=== PATIENT | male | born 1980 | race Caucasian/White ===

== ENCOUNTER 2021-04-28 07:53 | Outpatient (REF) | payer BC, SELFPAY ==
[2021-04-28 11:56] LABS: Alanine Aminotransferase 23 U/L (0-40); Albumin Level 4.7 g/dL (3.5-5.0); Alkaline Phosphatase 55 U/L (39-117); Anion Gap 11 (12-20); Aspartate Amino Transferase 20 U/L (5-37); Bilirubin Total 1.4 mg/dL (0.0-1.0); Blood Urea Nitrogen 16 mg/dL (9-16); Calcium 9.6 mg/dL (8.4-10.2); Carbon Dioxide 27 mmol/L (22-29); Chloride 106 mmol/L (96-108); Cholesterol 206 mg/dL; Estimated Glomerular Filt Rate > 60; Glucose Fasting 94 mg/dL (60-99); HDL Cholesterol 52 mg/dL; LDL Cholesterol Calculated 129 mg/dl; Potassium 5.1 mmol/L (3.3-5.1); Sodium 139 mmol/L (135-145); Total Protein 7.2 g/dL (6.5-8.0); Triglycerides 127 mg/dL
[2021-04-28 12:09] LABS: Prostate Specific Antigen Scr 0.42 ng/mL (<0.05-4.0); TSH reflex Free T4 1.04 uIU/mL (0.32-4.0)
== END 2021-04-28 07:54 | disposition home or self-care (01) ==
LOC: HO.HMGCLDS 07:53
PROVIDERS: PCP Family Medicine; Visit Provider Family Medicine
DX: Z00.00 Encounter for general adult medical examination without abnormal findings (principal); Z12.5 Encounter for screening for malignant neoplasm of prostate
CPT/HCPCS: 36415; 80053; 80061; 84153; 84443

== ENCOUNTER 2022-05-29 08:05 | Outpatient (REF) | payer BC, SELFPAY ==
[2022-05-29 11:16] LABS: Appearance Urine Cloudy; Color Urine Yellow; Glucose Urine UA Negative (Negative); Leukocyte Esterase Urine Negative (Negative); Nitrite Urine Negative (Negative); PH 6.5 (5.0-9.0); Specific Gravity - Urine 1.025 (1.005-1.025); Urine Blood Negative (Negative); Urine Ketones Negative (Negative); Urine Protein Negative (Neg-Trace)
[2022-05-29 12:03] LABS: Creatinine Urine 232.18 mg/dL; Microalbum/Creatinine Ratio Ur 8.1 ug/mg cr
[2022-05-29 12:05] LABS: Prostate Specific Antigen Scr 0.39 ng/mL (<0.05-4.0); TSH reflex Free T4 0.93 uIU/mL (0.32-4.0)
[2022-05-29 12:11] LABS: Alanine Aminotransferase 21 U/L (0-40); Albumin Level 4.8 g/dL (3.5-5.0); Alkaline Phosphatase 56 U/L (39-117); Anion Gap 14 (12-20); Aspartate Amino Transferase 21 U/L (5-37); Bilirubin Total 1.1 mg/dL (0.0-1.0); Blood Urea Nitrogen 14 mg/dL (9-16); Calcium 9.4 mg/dL (8.4-10.2); Carbon Dioxide 25 mmol/L (22-29); Chloride 107 mmol/L (96-108); Cholesterol 220 mg/dL; Estimated Glomerular Filt Rate > 60; Glucose Fasting 101 mg/dL (60-99); HDL Cholesterol 54 mg/dL; LDL Cholesterol Calculated 144 mg/dl; Potassium 4.4 mmol/L (3.3-5.1); Sodium 142 mmol/L (135-145); Total Protein 7.3 g/dL (6.5-8.0); Triglycerides 112 mg/dL
== END 2022-05-29 08:06 | disposition home or self-care (01) ==
LOC: HO.HMGCLDS 08:05
PROVIDERS: PCP Family Medicine; Visit Provider Family Medicine
DX: Z00.00 Encounter for general adult medical examination without abnormal findings (principal); Z12.5 Encounter for screening for malignant neoplasm of prostate; I10 Essential (primary) hypertension
CPT/HCPCS: 36415; 80053; 80061; 81003; 82043; 84153; 84443

== ENCOUNTER 2022-09-20 15:00 | Outpatient (RCR) | payer BC, SELFPAY ==
--- NOTE | 2022-09-06 15:39 | MHC.PT.EP ---
[facility] [place] Office [place] Office [place] Office [address] Hector Hyde [address] [phone] F: [phone] F: [phone] F: [phone] F: [phone] Physical Therapy Plan of Care Date of Evaluation: Date of Surgery: N/A Diagnosis: low back pain (RC) Assessment: pt is a 42 y/o male presenting to physical therapy w/ referring diagnosis of low back pain. pt's signs and symptoms consistent w/ poor habitual posturing and muscle imbalance. Impairments include pain, decreased range of motion, decreased strength, impaired functional mobility, impaired postural awareness, and altered ambulation mechanics. pt is a good candidate for skilled PT due to age, potential remediation of impairments, typyical disease/condition progression and prognosis, comorbidities, and motivation. pt would benefit from skilled PT intervention to provide a tailored strengthening and stretching exercise program, functional training, gait training, postural re-training, neuromuscular re-education, modalities as needed for pain, equipment safety demonstration. Frequency and Duration: The patient will be seen 2x/wk for 4 wks Short Term Goals: pt will be I w/ HEP to promote self-management of condition. pt will demo proper sitting posture w/ lumbar roll to promote neutral spine w/ seated ADLs. Mcfp Goals: pt will demo proper lifting mechanics w/ 25# object from floor to chest height to promote neutral spine w/ lifting. pt will report a statistically significant improvement in self-reported outcome measure, Jennifer, to promote return to PLOF. Treatment Plan: Modalities to reduce pain, spasms and effusion. Manual therapy to restore motion and function. Therapeutic exercise to improve strength and flexibility. Neuromuscular re-education for posture and balance. Therapeutic activities to return to functional activities of daily living. Electronically signed by: Mony Lomas PT, DPT Please sign and return to therapist. Thank you for your referral.
--- NOTE | 2022-10-17 12:15 | MHC.PT.DC ---
[facility] [place] Office [place] Office [place] Office [address] Hector Hyde [address] [phone] F: [phone] F: [phone] F: [phone] F: [phone] Physical Therapy Discharge Report Diagnosis: low back pain (RC) Date of Surgery: N/A Date of Evaluation: 09/06/22 Date of Discharge: 10/17/22 Treatments to Date: 4 Cancellations to Date: 3 No Shows to Date: 0 Discharge Status: Recommend MD Follow-up Discharge Summary: The patient was not reporting much of a difference in his back symptoms with physical therapy intervention. He has only attended 3 visits at this time. The patient was compliant at time of attending physical therapy. He called to cancel his last visit approximately one month ago due to shingles. He has not called to reschedule in approximately 4 weeks. He is being discharged from this physical therapy plan of care. Electronically signed by: Mony Lomas PT, DPT Please sign and return to therapist. Thank you for your referral.
== END 2022-10-17 12:15 | disposition home or self-care (01) ==
LOC: HO.PT 15:00
PROVIDERS: PCP Family Medicine; Visit Provider Family Medicine
DX: M54.50 Low back pain, unspecified (principal)
CPT/HCPCS: 97110; 97112; 97161

== ENCOUNTER 2022-11-15 14:04 | Outpatient (REF) | payer BC, SELFPAY ==
--- NOTE | ~2022-11-15 | XR_ITS ---
EXAMINATION: XR ANKLE, LEFT XR FOOT, LEFT CLINICAL INFORMATION: Left ankle and foot pain. COMPARISON: Left ankle and foot radiographs dated 08/05/2013. TECHNIQUE: AP, lateral, and mortise views of the left ankle and foot were obtained. FINDINGS: No acute fracture or dislocation. Normal tarsal alignment. No joint space narrowing or marginal osteophytes. No osseous erosion. No significant joint effusion. No abnormal soft tissue calcification. XR/XR ankle LT 2V IMPRESSION: Unremarkable examination.
--- NOTE | ~2022-11-15 | XR_ITS ---
EXAMINATION: XR ANKLE, LEFT XR FOOT, LEFT CLINICAL INFORMATION: Left ankle and foot pain. COMPARISON: Left ankle and foot radiographs dated 08/05/2013. TECHNIQUE: AP, lateral, and mortise views of the left ankle and foot were obtained. FINDINGS: No acute fracture or dislocation. Normal tarsal alignment. No joint space narrowing or marginal osteophytes. No osseous erosion. No significant joint effusion. No abnormal soft tissue calcification. XR/XR foot LT min 3V IMPRESSION: Unremarkable examination.
== END 2022-11-15 14:05 | disposition home or self-care (01) ==
LOC: HO.HMGCX 14:04
PROVIDERS: PCP Family Medicine; Visit Provider Family Medicine
DX: M25.572 Pain in left ankle and joints of left foot (principal); M25.472 Effusion, left ankle
CPT/HCPCS: 73600; 73630

== ENCOUNTER 2023-05-20 08:53 | Outpatient (AMB) | payer BC, SELFPAY ==
[2023-05-20 08:56] VITALS: BP 116/66; PULSE 74; RESP 13; TEMP 36.6; O2SAT 99; BMI 25.9
--- NOTE | 2023-05-20 08:56 | MHC.PC.OV ---
Vital Signs 05/20/23 08:56 Height 6 ft Weight 191 lb 4 oz BMI 25.9 BP 116/66 Blood Pressure Location Lt brachial Position Sitting Respiration 13 Pulse 74 Pulse Source Pulse Oximeter Temp 97.9 F Temp Source Temporal Artery Scan Pulse Oximetry (%) 99 Oxygen Delivery Method Room Air Intake Visit Reasons: PE Right Of Way Buyer Required: No Accompanied by: Self / Same As Patient Allergies No Known Allergies [No Known Allergies*] Allergy (Verified 05/20/23 09:01) Tobacco use date assessed: 05/20/23 Dental Screening Dental Screen Date: 05/20/23 Did you have a dental visit in the last 12 months?: Yes Did you have a dental problem in the last 6 months where you did not have access to dental care?: No Was dental information given to patient?: Patient has dentist HPI PE HPI Details 42 y/o male presents for a CPE with f/u labs and health maintenance. No recent labs to review. 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 1. Little interest or pleasure in doing things: not at all 2. Feeling down, depressed, or hopeless: not at all 3. Trouble falling or staying asleep, or sleeping too much: not at all 4. Feeling tired or having little energy: not at all 5. Poor appetite or overeating: not at all 6. Feeling bad about yourself - or that you are a failure or have let yourself or your family down: not at all 7. Trouble concentrating on things, such as reading the newspaper or watching television: not at all 8. Moving or speaking so slowly that other people could have noticed. Or the opposite - being so fidgety or restless that you have been moving around a lot more than usual: not at all 9. Thoughts that you would be better off or of hurting yourself in some way: not at all Total score: 0 Depression Screening Interpretation: Negative Depression Screening Done: Yes Source: Developed by Drs. Mc Moore, Kelsey Bravo, Walter Chicas and colleagues, with an educational sherri from [employer]. Thrive Questionnaire Date Thrive assessed: 05/20/23 I am a: Patient What is your living situation today?: I have a steady place to live Within the past 12 months, did the food you bought not last and you didn't have the money to get more?: Never true Within the past 12 months, did you worry whether your food would run out before you got money to buy more?: Never true Do you have trouble paying for medicines?: No Do you have trouble getting transportation to medical appointments?: No Do you have trouble paying your heating and electricity bill?: No Do you have trouble taking care of your child, family member or friend?: No Do you have trouble with day-to-day activities such as bathing, preparing meals, shopping, managing finances, etc.?: No Are you currently unemployed and looking for a job?: No Are you interested in more education?: No Please select the resources that you would like help with: None Currently or been in a relationship where the following occur: no concerns reported PAULA-7 AMB Questionnaire PAULA-7 Date PAULA - 7 assessed: 05/20/23 Feeling nervous, anxious, or on edge: 0 = Not at all Not being able to stop or control worryin = Not at all Worrying too much about different things: 0 = Not at all Trouble relaxin = Not at all Being so restless that it is hard to sit still: 0 = Not at all Becoming easily annoyed or irritable: 0 = Not at all Feeling afraid as if something awful might happen: 0 = Not at all Total PAULA-7 score (0-4 normal; 5-9 mild; 10-14 moderate; 15-21 severe): 0 Source: Developed by Kelsey Perez Kurt Kroenke and colleagues, with an educational sherri from [employer]. Review of Systems Const Denies chills, Denies fatigue, Denies fever(s), Denies headache(s) and Denies weakness Eyes Denies change in vision ENT Denies dizziness, Denies headache(s), Denies hearing loss, Denies nasal congestion, Denies sinus pain, Denies sinus pressure and Denies sore throat Card Denies chest pain, Denies lightheadedness, Denies dyspnea and Denies other (palpitations) Resp Denies cough, Denies dyspnea and Denies wheezing GI Denies abdominal pain, Denies melena, Denies hematochezia, Denies change in bowel habits, Denies dyspepsia and Denies nausea Denies hematuria and Denies dysuria Musc Denies abnormal gait, Denies myalgias, Denies arthralgias, Denies numbness and Denies tingling Skin/Breast Denies rash, Denies unusual bruising and Denies wounds Neuro Denies abnormal gait, Denies dizziness, Denies headache(s), Denies memory loss, Denies numbness, Denies Sensory deficit (Neuro), Denies tingling and Denies weakness Psych Denies anxiety, Denies depression and Denies memory loss Endo Denies cold intolerance, Denies fatigue, Denies heat intolerance, Denies polydipsia and Denies polyuria Ketan/Lymph Denies easy bleeding and Denies easy bruising Aller/Immun Denies wheezing Physical exam (Primary Care) Vital Signs: Last Vital Signs Temp 97.9 F 05/20/23 08:56 Pulse 74 05/20/23 08:56 Resp 13 05/20/23 08:56 BP 116/66 05/20/23 08:56 Pulse Ox 99 05/20/23 08:56 Oxygen Delivery Method Room Air 05/20/23 08:56 BMI result Body Mass Index 25.9 Tobacco/Smoking Status: Tobacco use Status Tobacco use date assessed 05/20/23 05/20/23 09:03 Patient Tobacco Use Status Never used Tobacco 05/20/23 09:03 e-Cigarette/Vaping Use Never Used 05/20/23 09:03 PHQ-9: PHQ-9 Score PHQ-9: Total score 0 05/20/23 09:40 Depression Screening Interpretation: Negative Thrive Assessment: Date of Thrive Assessment Date Thrive assessed 05/20/23 05/20/23 09:29 Currently or been in a relationship where the following occur: no concerns reported Const General: no acute distress, well developed, alert and awake Nutritional Appearance: well nourished Orientation/consciousness: patient oriented x3 HENMT Head: Yes normocephalic and Yes atraumatic Ears: hearing grossly normal bilaterally and TM's normal bilaterally General nose exam: Normal external nose present and Normal nares present Mouth: Normal oral and palatal mucosa present and moist mucous membranes Teeth and gingiva: dentition normal Throat: Yes posterior oropharynx normal Eyes General: appearance normal, both eyes and all related structures Pupils: Equal, round and reactive pupils present and Pupil accommodation reflex normal EOM: EOMs intact bilaterally Neck Neck: Yes normal visual inspection, Yes no lymphadenopathy and Yes trachea midline Thyroid: Thyroid normal Carotids: no bruits Lymphatic: no lymphadenopathy noted Chest Chest palpation & inspection: normal inspection of the chest Resp Effort & Inspection: normal respiratory effort Auscultation: clear to auscultation bilaterally Cardio Rate: regular rate Rhythm: regular rhythm Heart sounds: S1 normal heart sound present, S2 normal heart sound present, no gallops, no murmurs and no rubs Bruits: no abdominal aortic bruits and no carotid bruits GI Palpation (GI): No Abdominal aortic bruit present, Soft to palpation, nontender, No hepatosplenomegaly present and No Rebound tenderness present Auscultation: normal bowel sounds General: Yes no CVA tenderness Back/Spine/Pelvis Back: no CVA tenderness Cervical Spine: cervical ROM normal and No Cervical spine tenderness Thoracic/Lumbar Spine: thoraco-lumbar ROM normal, No pain with thoraco-lumbar ROM, No thoracic spinal tenderness and No lumbar spinal tenderness Skin Lesions: no lesions Rashes: no rashes Trauma: no lacerations or abrasions Wounds: no wounds Nails: normal Neuro General: patient oriented x3 Cranial nerves: Yes Equal, round and reactive pupils present Cognition (Neuro): normal cognition Gait exam (Neuro): Normal gait present Motor exam (neuro): 5/5 motor strength present throughout Sensory Exam: No Sensory deficit (Neuro) Deep tendon reflexes (DTR's): Right patellar reflex intensity grade: 2+ and Left patellar reflex intensity grade: 2+ Extrem General: Yes normal to inspection and No edema Psych Appearance: grossly normal Affect: normal affect Attitude: cooperative Thought process: Normal thought process present Assessment and Plan Assessment & Plan (1) Adult general medical exam: Code(s): Z00.00 - Encounter for general adult medical examination without abnormal findings Plan: 42-year-old?male?presents?for?complete?physical?exam Encouraged?healthy?diet?with?active?lifestyle?and?plenty?of?exercise (2) Screening for prostate cancer: Code(s): Z12.5 - Encounter for screening for malignant neoplasm of prostate Plan: PSA?is?ordered Coding Level of Care Code Est Pt Level 3 (82700) Est Pt Prev Care 40-64y(76307) Diagnoses Adult general medical exam Z00.00 Screening for prostate cancer Z12.5
== END 2023-05-20 09:50 | disposition home or self-care (01) ==
PROVIDERS: PCP Family Medicine; Visit Provider Family Medicine
DX: Z00.00 Encounter for general adult medical examination without abnormal findings (principal); Z12.5 Encounter for screening for malignant neoplasm of prostate
CPT/HCPCS: 99396

== ENCOUNTER 2023-05-22 07:59 | Outpatient (REF) | payer BC, SELFPAY ==
[2023-05-22 11:29] LABS: Estimated Average Glucose 97 mg/dL
[2023-05-22 11:47] LABS: Alanine Aminotransferase 28 U/L (0-40); Albumin Level 4.6 g/dL (3.5-5.0); Alkaline Phosphatase 60 U/L (39-117); Anion Gap 15 (12-20); Aspartate Amino Transferase 25 U/L (5-37); Bilirubin Total 1.1 mg/dL (0.0-1.0); Blood Urea Nitrogen 13 mg/dL (9-16); Calcium 9.8 mg/dL (8.4-10.2); Carbon Dioxide 26 mmol/L (22-29); Chloride 105 mmol/L (96-108); Cholesterol 230 mg/dL (<200); Estimated Glomerular Filt Rate > 60; Glucose Fasting 91 mg/dL (60-99); HDL Cholesterol 52 mg/dL (>40); LDL Cholesterol Calculated 152 mg/dL (<100); Potassium 4.6 mmol/L (3.3-5.1); Sodium 141 mmol/L (135-145); Total Protein 7.3 g/dL (6.5-8.0); Triglycerides 133 mg/dL (<150)
[2023-05-22 11:54] LABS: TSH reflex Free T4 1.27 uIU/mL (0.32-4.0)
== END 2023-05-22 08:00 | disposition home or self-care (01) ==
LOC: HO.HMGCLDS 07:59
PROVIDERS: PCP Family Medicine; Visit Provider Family Medicine
DX: Z00.00 Encounter for general adult medical examination without abnormal findings (principal); Z12.5 Encounter for screening for malignant neoplasm of prostate; R73.01 Impaired fasting glucose
CPT/HCPCS: 36415; 80053; 80061; 83036; 84153; 84443

== ENCOUNTER 2023-06-21 14:53 | Outpatient (AMB) | payer BC, SELFPAY ==
--- NOTE | 2023-06-21 14:51 | MHC.PC.OV ---
Intake Visit Reasons: f/u CPE-labs Tool Filer Hand Required: No Allergies No Known Allergies [No Known Allergies*] Allergy (Verified 06/21/23 14:52) Tobacco use date assessed: 05/20/23 HPI f/u CPE-labs HPI Details 42 y/o male presents to f/u CPE-labs via telemedicine. Labs were drawn 05/22/23. Reviewed labs with pt. Triglycerides 133. TC 230. LDL 152. HDL 52. Hx of mildly elevated fasting glucose of 101 and A1c 5.0% 05/22/23. 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 Mc Moore, Kelsey Bravo, Walter Chicas and colleagues, with an educational sherri from [employer]. Review of Systems Const Denies chills, Denies fatigue, Denies fever(s), Denies headache(s) and Denies weakness ENT Denies dizziness and Denies headache(s) Card Denies dyspnea Resp Denies cough, Denies dyspnea, Denies wheezing and Denies other (shortness of breath) Musc Denies numbness and Denies tingling Neuro Denies dizziness, Denies headache(s), Denies numbness, Denies tingling and Denies weakness Psych Denies anxiety and Denies depression Endo Denies fatigue Aller/Immun Denies wheezing Physical exam (Primary Care) Tobacco/Smoking Status: Tobacco use Status Tobacco use date assessed 05/20/23 06/21/23 14:53 Patient Tobacco Use Status Never used Tobacco 06/21/23 14:53 e-Cigarette/Vaping Use Never Used 06/21/23 14:53 Thrive Assessment: Date of Thrive Assessment Date Thrive assessed 05/20/23 06/21/23 14:53 Telehealth Telehealth Location of provider rendering services: practice address Location of patient: address on file Patient Identification confirmed using: Name, : Yes Telehealth method: voice only Patient verbally consented to treatment: Yes Patient verbally consented to billing insurance company: Yes Patient informed of any privacy concerns related to visit: Yes Minutes spent on Phone/Video with Pt.: 5 Assessment and Plan Assessment & Plan (1) Hyperlipidemia: Code(s): E78.5 - Hyperlipidemia, unspecified Plan: LDL?cholesterol?is?too?high. Start?atorvastatin?20?mg?daily Continue?to?work?at?diet?low?in?saturated?fats?and?cholesterol (2) Elevated fasting glucose: Code(s): R73.01 - Impaired fasting glucose Plan: Fasting?blood?sugar?was?within?normal?limits?and?his?A1c?is?5% (3) Screening for prostate cancer: Code(s): Z12.5 - Encounter for screening for malignant neoplasm of prostate Plan: PSA?was?within?normal?limits Coding Level of Care Code Tele Est Pt Level 2 (41633) Diagnoses Hyperlipidemia E78.5 Elevated fasting glucose R73.01 Screening for prostate cancer Z12.5
== END 2023-06-21 16:16 | disposition home or self-care (01) ==
PROVIDERS: PCP Family Medicine; Visit Provider Family Medicine
DX: E78.5 Hyperlipidemia, unspecified (principal); R73.01 Impaired fasting glucose; Z12.5 Encounter for screening for malignant neoplasm of prostate
CPT/HCPCS: 99441

== ENCOUNTER 2023-10-25 08:02 | Outpatient (REF) | payer BC, SELFPAY ==
[2023-10-25 10:59] LABS: Alanine Aminotransferase 49 U/L (0-40); Albumin Level 4.7 g/dL (3.5-5.0); Alkaline Phosphatase 61 U/L (39-117); Anion Gap 11 (12-20); Aspartate Amino Transferase 27 U/L (5-37); Bilirubin Total 0.8 mg/dL (0.0-1.0); Blood Urea Nitrogen 14 mg/dL (9-16); Calcium 9.8 mg/dL (8.4-10.2); Carbon Dioxide 30 mmol/L (22-29); Chloride 105 mmol/L (96-108); Cholesterol 155 mg/dL (<200); Estimated Glomerular Filt Rate > 60; Glucose Fasting 93 mg/dL (60-99); HDL Cholesterol 50 mg/dL (>40); LDL Cholesterol Calculated 83 mg/dL (<100); Potassium 4.1 mmol/L (3.3-5.1); Sodium 142 mmol/L (135-145); Total Protein 7.4 g/dL (6.5-8.0); Triglycerides 114 mg/dL (<150)
== END 2023-10-25 08:03 | disposition home or self-care (01) ==
LOC: HO.HMGCLDS 08:02
PROVIDERS: PCP Family Medicine; Visit Provider Family Medicine
DX: Z00.00 Encounter for general adult medical examination without abnormal findings (principal); E78.5 Hyperlipidemia, unspecified
CPT/HCPCS: 36415; 80053; 80061

== ENCOUNTER 2023-11-04 09:26 | Outpatient (AMB) | payer BC, SELFPAY ==
[2023-11-04 09:30] VITALS: BP 122/68; PULSE 68; O2SAT 98; BMI 25.5
--- NOTE | 2023-11-04 09:30 | MHC.PC.OV ---
Vital Signs 11/04/23 09:30 Height 6 ft Weight 188 lb 4 oz BMI 25.5 BP 122/68 Blood Pressure Location Lt brachial Position Sitting Pulse 68 Pulse Source Pulse Oximeter Pulse Oximetry (%) 98 Oxygen Delivery Method Room Air Intake Visit Reasons: Hyperlipidemia Intake Note: Patient is here to follow up on hyperlipdemia. Allergies No Known Allergies [No Known Allergies*] Allergy (Verified 11/04/23 09:31) Medication List - Last Reconciled 11/04/23 by Fady Calvert MD atorvastatin 20 mg PO BEDTIME 30 days Tobacco use date assessed: 11/04/23 Dental Screening Dental Screen Date: 11/04/23 Did you have a dental visit in the last 12 months?: Yes Did you have a dental problem in the last 6 months where you did not have access to dental care?: No Was dental information given to patient?: Patient has dentist HPI Hyperlipidemia HPI Details 53 y/o male presents to f/u hyperlipidemia. Had started him on artovastatin 20 mg in June. Labs were drawn 10/25/23. Reviewed labs with pt. Elevated ALT of 49. Triglycerides 114. TC improved from 230 to 155. LDL improved from 152 to 83. HDL 50. 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 1. Little interest or pleasure in doing things: not at all 2. Feeling down, depressed, or hopeless: not at all 3. Trouble falling or staying asleep, or sleeping too much: not at all 4. Feeling tired or having little energy: not at all 5. Poor appetite or overeating: not at all 6. Feeling bad about yourself - or that you are a failure or have let yourself or your family down: not at all 7. Trouble concentrating on things, such as reading the newspaper or watching television: not at all 8. Moving or speaking so slowly that other people could have noticed. Or the opposite - being so fidgety or restless that you have been moving around a lot more than usual: not at all 9. Thoughts that you would be better off or of hurting yourself in some way: not at all Total score: 0 Depression Screening Interpretation: Negative Depression Screening Done: Yes Source: Developed by Drs. Mc Moore, Kelsey Bravo, Walter Chicas and colleagues, with an educational sherri from [employer]. Thrive Questionnaire Date Thrive assessed: 11/04/23 I am a: Patient What is your living situation today?: I have a steady place to live Within the past 12 months, did the food you bought not last and you didn't have the money to get more?: Never true Within the past 12 months, did you worry whether your food would run out before you got money to buy more?: Never true Do you have trouble paying for medicines?: No Do you have trouble getting transportation to medical appointments?: No Do you have trouble paying your heating and electricity bill?: No Do you have trouble taking care of your child, family member or friend?: No Do you have trouble with day-to-day activities such as bathing, preparing meals, shopping, managing finances, etc.?: No Are you currently unemployed and looking for a job?: No Are you interested in more education?: No THRIVE Score: 0 AUDIT C Alcohol Use Questionnaire (AUDIT-C) 1. How often do you have a drink containing alcohol?: 2-3 times a week 2. How many drinks containing alcohol do you have on a typical day when you are drinking?: 3 or 4 3. How often do you have six or more drinks on one occasion?: Never Total Score: 4 PAULA-7 AMB Questionnaire PAULA-7 Date PAULA - 7 assessed: 11/04/23 Feeling nervous, anxious, or on edge: 0 = Not at all Not being able to stop or control worryin = Not at all Worrying too much about different things: 0 = Not at all Trouble relaxin = Not at all Being so restless that it is hard to sit still: 0 = Not at all Becoming easily annoyed or irritable: 0 = Not at all Feeling afraid as if something awful might happen: 0 = Not at all Total PAULA-7 score (0-4 normal; 5-9 mild; 10-14 moderate; 15-21 severe): 0 Source: Developed by Drs. Mc Moore, Kelsey Bravo, Walter Chicas and colleagues, with an educational sherri from [employer]. Review of Systems Const Denies chills, Denies fatigue, Denies fever(s), Denies headache(s) and Denies weakness ENT Denies dizziness and Denies headache(s) Card Denies chest pain, Denies lightheadedness, Denies dyspnea and Denies other (Palpitations) Resp Denies cough, Denies dyspnea, Denies wheezing and Denies other ( shortness of breath) Musc Denies numbness and Denies tingling Neuro Denies dizziness, Denies headache(s), Denies numbness, Denies tingling, Denies paresthesias and Denies weakness Psych Denies anxiety and Denies depression Endo Denies fatigue Aller/Immun Denies wheezing Physical exam (Primary Care) Vital Signs: Last Vital Signs Pulse 68 11/04/23 09:30 BP 122/68 11/04/23 09:30 Pulse Ox 98 11/04/23 09:30 Oxygen Delivery Method Room Air 11/04/23 09:30 BMI result Body Mass Index 25.5 Tobacco/Smoking Status: Tobacco use Status Tobacco use date assessed 11/04/23 11/04/23 09:34 Patient Tobacco Use Status Never used Tobacco 11/04/23 09:34 e-Cigarette/Vaping Use Never Used 11/04/23 09:34 PHQ-9: PHQ-9 Score PHQ-9: Total score 0 11/04/23 09:34 Depression Screening Interpretation: Negative Thrive Assessment: Date of Thrive Assessment Date Thrive assessed 11/04/23 11/04/23 09:34 Const General: no acute distress and well developed Nutritional Appearance: well nourished Orientation/consciousness: patient oriented x3 HENMT Head: Yes normocephalic and Yes atraumatic Eyes General: appearance normal, both eyes and all related structures Pupils: Equal, round and reactive pupils present EOM: EOMs intact bilaterally Resp Effort & Inspection: normal respiratory effort Auscultation: clear to auscultation bilaterally Cardio Rate: regular rate Rhythm: regular rhythm Heart sounds: S1 normal heart sound present, S2 normal heart sound present, no gallops, no murmurs and no rubs Neuro General: patient oriented x3 and gait normal Cranial nerves: Yes Equal, round and reactive pupils present Psych Affect: normal affect Assessment and Plan Assessment & Plan (1) Hyperlipidemia: Code(s): E78.5 - Hyperlipidemia, unspecified Plan: Lipids?very?well?controlled?on?atorvastatin?20?mg?daily We?can?decrease?this?to?10?mg?daily (2) Elevated ALT measurement: Code(s): R74.01 - Elevation of levels of liver transaminase levels Plan: ALT?increased?slightly?to?49?which?is?mildly?elevated.??Likely?multifactorial He?drinks?about?3?drinks?on?the?weekends Decreased?his?atorvastatin Will?recheck?liver?enzymes?in?about?4-6?weeks Orders: Orders Comprehensive [place]. Panel Fast Today R74.01 - Elevation of levels of liver transaminase levels, Z00.00 - Encounter for general adult medical examination without abnormal findings Medications: Changed From atorvastatin 20 mg PO BEDTIME 30 tabs 3RF 30 days To atorvastatin 10 mg PO BEDTIME 90 tabs 3RF 90 days Coding Level of Care Code Est Pt Level 3 (75682) Diagnoses Hyperlipidemia E78.5 Elevated ALT measurement R74.01
== END 2023-11-04 09:48 | disposition home or self-care (01) ==
PROVIDERS: PCP Family Medicine; Visit Provider Family Medicine
DX: E78.5 Hyperlipidemia, unspecified (principal); R74.01 Elevation of levels of liver transaminase levels
CPT/HCPCS: 99213

== ENCOUNTER 2023-12-03 07:59 | Outpatient (REF) | payer BC, SELFPAY ==
[2023-12-03 11:14] LABS: Alanine Aminotransferase 27 U/L (0-40); Albumin Level 4.7 g/dL (3.5-5.0); Alkaline Phosphatase 54 U/L (39-117); Anion Gap 13 (12-20); Aspartate Amino Transferase 22 U/L (5-37); Bilirubin Total 1.9 mg/dL (0.0-1.0); Blood Urea Nitrogen 15 mg/dL (9-16); Calcium 9.8 mg/dL (8.4-10.2); Carbon Dioxide 27 mmol/L (22-29); Chloride 105 mmol/L (96-108); Estimated Glomerular Filt Rate > 60; Glucose Fasting 100 mg/dL (60-99); Potassium 4.5 mmol/L (3.3-5.1); Sodium 140 mmol/L (135-145); Total Protein 7.3 g/dL (6.5-8.0)
== END 2023-12-03 08:00 | disposition home or self-care (01) ==
LOC: HO.HMGCLDS 07:59
PROVIDERS: PCP Family Medicine; Visit Provider Family Medicine
DX: Z00.00 Encounter for general adult medical examination without abnormal findings (principal); R74.01 Elevation of levels of liver transaminase levels
CPT/HCPCS: 36415; 80053

== ENCOUNTER → 2023-12-09 16:12 | Outpatient (AMB) | payer BC, SELFPAY ==
--- NOTE | 2023-12-09 16:07 | MHC.PC.OV ---
Intake Visit Reasons: f/u liver enzymes Intake Note: Patient is following up on his lab work today. Allergies No Known Allergies [No Known Allergies*] Allergy (Verified 12/09/23 16:08) Tobacco use date assessed: 12/09/23 Dental Screening Dental Screen Date: 11/04/23 HPI f/u liver enzymes HPI Details 43 y/o male presents to f/u mildly elevated ALT via telemedicine. Labs were drawn 12/03/23. Reviewed labs with pt. ALT improved from 49 to 27 and is now within normal range. 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 Mc Moore, Kelsey Bravo, Walter Chicas and colleagues, with an educational sherri from [employer]. Review of Systems Const Denies chills, Denies fatigue, Denies fever(s), Denies headache(s) and Denies weakness ENT Denies dizziness and Denies headache(s) Card Denies dyspnea Resp Denies cough, Denies dyspnea, Denies wheezing and Denies other (shortness of breath) Musc Denies numbness and Denies tingling Neuro Denies dizziness, Denies headache(s), Denies numbness, Denies tingling and Denies weakness Psych Denies anxiety and Denies depression Endo Denies fatigue Aller/Immun Denies wheezing Physical exam (Primary Care) Tobacco/Smoking Status: Tobacco use Status Tobacco use date assessed 12/09/23 12/09/23 16:08 Patient Tobacco Use Status Never used Tobacco 12/09/23 16:08 e-Cigarette/Vaping Use Never Used 12/09/23 16:08 Thrive Assessment: Date of Thrive Assessment Date Thrive assessed 11/04/23 12/09/23 16:08 Telehealth Telehealth Telehealth Platform: Telephone Location of provider rendering services: practice address Location of patient: address on file Patient Identification confirmed using: Name, : Yes Telehealth method: voice only Patient verbally consented to treatment: Yes Patient verbally consented to billing insurance company: Yes Patient informed of any privacy concerns related to visit: Yes Minutes spent on Phone/Video with Pt.: 5 Assessment and Plan Assessment & Plan (1) Elevated ALT measurement: Code(s): R74.01 - Elevation of levels of liver transaminase levels Plan: Liver?enzymes?back?within?normal?range. Encouraged?good?hydration Avoid?excessive?Tylenol?or?alcohol. Control?weight We?have?decreased?his?atorvastatin?though?there?is?no?direct?evidence?that?this?was?involved?in?raising?his?liver?enzymes. (2) Hyperlipidemia: Code(s): E78.5 - Hyperlipidemia, unspecified Plan: Decreased?atorvastatin?because?his?response?to?atorvastatin?was?excellent.??At?the?same?time,?liver?enzymes?had?elevated?and?though?it?is?doubtful?this?is?due?to?atorvastatin,?he?does?not?seem?to?need?so?much?of??that?medication Will?recheck?lipids?prior?to?his?next?encounter. Orders: Orders Comprehensive [place]. Panel Fast Today E78.5 - Hyperlipidemia, unspecified, Z00.00 - Encounter for general adult medical examination without abnormal findings Lipid Panel Today E78.5 - Hyperlipidemia, unspecified, Z00.00 - Encounter for general adult medical examination without abnormal findings Coding Level of Care Code Tele Est Pt Level 2 (24327) Diagnoses Elevated ALT measurement R74.01 Hyperlipidemia E78.5
== END ==
PROVIDERS: PCP Family Medicine; Visit Provider Family Medicine
DX: R74.01 Elevation of levels of liver transaminase levels (principal); E78.5 Hyperlipidemia, unspecified
CPT/HCPCS: 99441

== ENCOUNTER 2025-07-28 09:02 | Outpatient (AMB) | payer OTHER, SELFPAY ==
--- NOTE | 2025-07-28 09:05 | MHC.PC.OV ---
Vital Signs 07/28/25 09:10 Height 6 ft Weight 191 lb BMI 25.9 BP 102/68 Blood Pressure Location Rt brachial Position Sitting Respiration 15 Pulse 70 Pulse Source Pulse Oximeter Temp 97.6 F Temp Source Temporal Artery Scan Pulse Oximetry (%) 97 Oxygen Delivery Method Room Air Intake Visit Reasons: Annual pe Intake Note: Jasson presents in the office today for his annual physical. 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 No recent labs to review. He is on artovastatin 10 mg for his lipids. Continues taking this as prescribed. Pt notes he works out multiple times a week. 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 1. Little interest or pleasure in doing things: not at all 2. Feeling down, depressed, or hopeless: not at all 3. Trouble falling or staying asleep, or sleeping too much: not at all 4. Feeling tired or having little energy: not at all 5. Poor appetite or overeating: not at all 6. Feeling bad about yourself - or that you are a failure or have let yourself or your family down: not at all 7. Trouble concentrating on things, such as reading the newspaper or watching television: not at all 8. Moving or speaking so slowly that other people could have noticed. Or the opposite - being so fidgety or restless that you have been moving around a lot more than usual: not at all 9. Thoughts that you would be better off or of hurting yourself in some way: not at all Total score: 0 Depression Screening Interpretation: Negative Depression Screening Done: Yes 23059 - PHQ-9 Billing: Yes Source: Developed by Drs. Mc Moore, Kelsey Bravo, Walter Chicas and colleagues, with an educational sherri from [employer]. Thrive Questionnaire Date Thrive assessed: 07/28/25 I am a: Patient What is your living situation today?: I have a steady place to live Within the past 12 months, did the food you bought not last and you didn't have the money to get more?: Never true Within the past 12 months, did you worry whether your food would run out before you got money to buy more?: Never true Do you have trouble paying for medicines?: No Do you have trouble getting transportation to medical appointments?: No Do you have trouble paying your heating and electricity bill?: No Do you have trouble taking care of your child, family member or friend?: No Do you have trouble with day-to-day activities such as bathing, preparing meals, shopping, managing finances, etc.?: No Are you currently unemployed and looking for a job?: No Are you interested in more education?: No Please select the resources that you would like help with: None Currently or been in a relationship where the following occur: No concerns reported THRIVE Score: 0 AUDIT C Alcohol Use Questionnaire (AUDIT-C) 1. How often do you have a drink containing alcohol?: 2-4 times a month 2. How many drinks containing alcohol do you have on a typical day when you are drinking?: 3 or 4 3. How often do you have six or more drinks on one occasion?: Less than monthly Total Score: 4 PAULA-7 AMB Questionnaire PAULA-7 Date PAULA - 7 assessed: 07/28/25 Feeling nervous, anxious, or on edge: 0 = Not at all Not being able to stop or control worryin = Not at all Worrying too much about different things: 0 = Not at all Trouble relaxin = Not at all Being so restless that it is hard to sit still: 0 = Not at all Becoming easily annoyed or irritable: 0 = Not at all Feeling afraid as if something awful might happen: 0 = Not at all Total PAULA-7 score (0-4 normal; 5-9 mild; 10-14 moderate; 15-21 severe): 0 Source: Developed by Drs. Mc Moore, Kelsey Bravo, Walter Chicas and colleagues, with an educational sherri from [employer]. PAULA-7 Assessment Billing PAULA-7 Assessment Tool: PAULA-7 Assessment 13883 Review of Systems Const Denies chills, Denies fatigue, Denies fever(s), Denies headache(s) and Denies weakness Eyes Denies change in vision ENT Denies dizziness, Denies headache(s), Denies hearing loss, Denies nasal congestion, Denies sinus pain, Denies sinus pressure and Denies sore throat Card Denies chest pain, Denies lightheadedness, Denies dyspnea and Denies other (palpitations) Resp Denies cough, Denies dyspnea and Denies wheezing GI Denies abdominal pain, Denies melena, Denies hematochezia, Denies change in bowel habits, Denies dyspepsia and Denies nausea Denies hematuria and Denies dysuria Musc Denies abnormal gait, Denies myalgias, Denies arthralgias, Denies numbness and Denies tingling Skin/Breast Denies rash, Denies unusual bruising and Denies wounds Neuro Denies abnormal gait, Denies dizziness, Denies headache(s), Denies memory loss, Denies numbness, Denies Sensory deficit (Neuro), Denies tingling and Denies weakness Psych Denies anxiety, Denies depression and Denies memory loss Endo Denies cold intolerance, Denies fatigue, Denies heat intolerance, Denies polydipsia and Denies polyuria Ketan/Lymph Denies easy bleeding and Denies easy bruising Aller/Immun Denies wheezing Physical exam (Primary Care) Vital Signs: Last Vital Signs Temp 97.6 F 07/28/25 09:10 Pulse 70 07/28/25 09:10 Resp 15 07/28/25 09:10 BP 102/68 07/28/25 09:10 Pulse Ox 97 07/28/25 09:10 Oxygen Delivery Method Room Air 07/28/25 09:10 BMI result Body Mass Index 25.9 Tobacco/Smoking Status: Tobacco use Status Tobacco use date assessed 07/28/25 07/28/25 09:13 Patient Tobacco Use Status Never used Tobacco 07/28/25 09:10 e-Cigarette/Vaping Use Never Used 07/28/25 09:10 PHQ-9: PHQ-9 Score PHQ-9: Total score 0 07/28/25 09:13 Depression Screening Interpretation: Negative Thrive Assessment: Date of Thrive Assessment Date Thrive assessed 07/28/25 07/28/25 09:13 Currently or been in a relationship where the following occur: No concerns reported Const General: no acute distress, well developed, alert and awake Nutritional Appearance: well nourished Orientation/consciousness: patient oriented x3 HENMT Head: Yes normocephalic and Yes atraumatic Ears: hearing grossly normal bilaterally and TM's normal bilaterally General nose exam: Normal external nose present and Normal nares present Mouth: Normal oral and palatal mucosa present and moist mucous membranes Teeth and gingiva: dentition normal Throat: Yes posterior oropharynx normal Eyes General: appearance normal, both eyes and all related structures Pupils: Equal, round and reactive pupils present and Pupil accommodation reflex normal EOM: EOMs intact bilaterally Neck Neck: Yes normal visual inspection, Yes no lymphadenopathy and Yes trachea midline Thyroid: Thyroid normal Carotids: no bruits Lymphatic: no lymphadenopathy noted Chest Chest palpation & inspection: normal inspection of the chest Resp Effort & Inspection: normal respiratory effort Auscultation: clear to auscultation bilaterally Cardio Rate: regular rate Rhythm: regular rhythm Heart sounds: S1 normal heart sound present, S2 normal heart sound present, no gallops, no murmurs and no rubs Bruits: no abdominal aortic bruits and no carotid bruits GI Palpation (GI): No Abdominal aortic bruit present, Soft to palpation, nontender, No hepatosplenomegaly present and No Rebound tenderness present Auscultation: normal bowel sounds General: Yes no CVA tenderness Back/Spine/Pelvis Back: no CVA tenderness Cervical Spine: cervical ROM normal and No Cervical spine tenderness Thoracic/Lumbar Spine: thoraco-lumbar ROM normal, No pain with thoraco-lumbar ROM, No thoracic spinal tenderness and No lumbar spinal tenderness Skin Lesions: no lesions Rashes: no rashes Trauma: no lacerations or abrasions Wounds: no wounds Nails: normal Neuro General: patient oriented x3 Cranial nerves: Yes Equal, round and reactive pupils present Cognition (Neuro): normal cognition Gait exam (Neuro): Normal gait present Motor exam (neuro): 5/5 motor strength present throughout Sensory Exam: No Sensory deficit (Neuro) Deep tendon reflexes (DTR's): Right patellar reflex intensity grade: 2+ and Left patellar reflex intensity grade: 2+ Extrem General: Yes normal to inspection and No edema Psych Appearance: grossly normal Affect: normal affect Attitude: cooperative Thought process: Normal thought process present Coding Level of Care Code Est Pt Level 3 (11902) Est Pt Prev Care 40-64y(49007) Diagnoses Adult general medical exam Z00.00 Hyperlipidemia E78.5 Screening for prostate cancer Z12.5 Screening for colon cancer Z12.11 Additional Codes PAULA-7 Assessment Billing - PAULA-7 Assessment Tool: PAULA-7 Assessment 15049 ([id number]) PHQ-9 - 47858 - PHQ-9 Billing: Yes ([id number]) Assessment & Plan Assessment & Plan (1) Adult general medical exam: Code(s): Z00.00 - Encounter for general adult medical examination without abnormal findings Category: Medical Plan: 45-year-old male presents for complete physical exam Exam all within normal limits Encouraged healthy diet with active lifestyle and plenty of exercise (2) Hyperlipidemia: Code(s): E78.5 - Hyperlipidemia, unspecified Category: Medical Plan: Patient continues atorvastatin Will check lipids with next blood draw (3) Screening for prostate cancer: Code(s): Z12.5 - Encounter for screening for malignant neoplasm of prostate Category: Medical Plan: Due for PSA level Ordered (4) Screening for colon cancer: Code(s): Z12.11 - Encounter for screening for malignant neoplasm of colon Category: Medical Plan: Due for 1st screening colonoscopy. Patient notes that he had a diagnostic colonoscopy more than 10 years ago for some blood in stools. He says this was negative. Referred to Gastroenterology Orders: Orders Comprehensive [place]. Panel Fast Today Z00.00 - Encounter for general adult medical examination without abnormal findings Complete Blood Count Auto Diff Today Z00.00 - Encounter for general adult medical examination without abnormal findings Microalbumin, Random (w Creat) Today I10 - Essential (primary) hypertension Prostate Specific Antigen Scr Today Z12.5 - Encounter for screening for malignant neoplasm of prostate Lipid Panel Today Z00.00 - Encounter for general adult medical examination without abnormal findings UA CC w/rflx Micro + Cult Today Z00.00 - Encounter for general adult medical examination without abnormal findings TSH reflex Free T4 Today Z00.00 - Encounter for general adult medical examination without abnormal findings Referrals Gastroenterology Referral Z12.11 - Encounter for screening for malignant neoplasm of colon
--- OUTSIDE RECORDS SUMMARY | 2025-07-28 09:07 | XMS_ITS | Clinical Summary ---
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 Active Active Problems No known active problems Social History Tobacco Use Types Packs/Day Years Used Date Smoking Tobacco: Never Assessed Education Answer Date Recorded Are you interested in more education? Not on aman e 05/27/2024 Are you concerned about learning? Not on file 05/27/2024 No 05/27/2024 No 05/27/2024 Digital Access Answer Date Recorded No 05/27/2024 No 05/27/2024 Reliable internet access at home? Not on file 05/27/2024 Device with a working camera? Not on file Sex and Gender Information Value Date Recorded Sex Assigned at Not on file Legal Sex Male 8:25 AM EDT Gender Identity Not on file Sexual Orientation Not on file Last Filed Vital Signs Vital Sign Reading Time Taken Comments Blood Pressure 138/87 05/27/2024 8:48 AM EDT Pulse 66 05/27/2024 8:48 AM EDT Temperature 36.7 C (98.1 F) 05/27/2024 8:48 AM EDT Respiratory Rate - - Oxygen Saturation 97% 05/27/2024 8:48 AM EDT Inhaled Oxygen Concentration - - Weight - - Height - - Body Mass Index - - Plan of Treatment Health Maintenance Due Date Last Done Comments LIPID PANEL 1980 DEPRESSION SCREENING 1992 SMOKING Hx and SMOKELESS TOBACCO SCREENING 1993 HEPATITIS C SCREENING 1998 HIV ONE-TIME SCREENING (18-65 YEARS) 1998 INFLUENZA VACCINE (#1) 2025 , 04/27/2022, 04/30/2021, Additional history exists COVID-19 VACCINE (2024- season) 2025 06/06/2022, 06/16/2021, 10/08/2020 COLOGUARD 2025 COLONOSCOPY 2025 COLORECTAL CANCER SCREENING 2025 FIT TEST 2025 FOBT 2025 SIGMOIDOSCOPY 2025 VIRTUAL COLONOSCOPY 2025 Adult Td,Tdap Booster 03/07/2028 03/07/2018 HEPATITIS A VACCINES Aged Out No long er eligible based on patient's age to complete this topic HIB VACCINES Aged Out No longer eligi ble based on patient's age to complete this topic MENINGOCOCCAL VACCINES (ACWY) Aged Out No longer eligible based on patient's age to complete this topic MENINGOCOCCAL VACCINES (B) Aged Out N o longer eligible based on patient's age to complete this topic PNEUMOCOCCAL VACCINES (0-49 years) Aged Out No longer eligible based on patient's age to complete this topic Medical Devices Not on file [facility] H[facility] Care Teams 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 It is not the complete legal health record.[facility]
[2025-07-28 09:10] VITALS: BP 102/68; PULSE 70; RESP 15; TEMP 36.4; O2SAT 97; BMI 25.9
== END 2025-07-28 09:40 | disposition home or self-care (01) ==
LOC: HO.HMCFM 09:03
PROVIDERS: PCP Family Medicine; Visit Provider Family Medicine
DX: Z00.00 Encounter for general adult medical examination without abnormal findings (principal); E78.5 Hyperlipidemia, unspecified; Z12.5 Encounter for screening for malignant neoplasm of prostate; Z12.11 Encounter for screening for malignant neoplasm of colon

== ENCOUNTER → 2025-07-28 09:02 | Outpatient (BNVA) | payer OTHER, SELFPAY | PROVIDERS: PCP Family Medicine; Visit Provider Family Medicine | DX: Z00.00 Encounter for general adult medical examination without abnormal findings (principal); Z12.5 Encounter for screening for malignant neoplasm of prostate; Z12.11 Encounter for screening for malignant neoplasm of colon; E78.5 Hyperlipidemia, unspecified | CPT/HCPCS: 96127 ==